=== PATIENT | male | born 1985 | race Caucasian/White ===

== ENCOUNTER 2021-01-22 15:51 | Emergency (ER) | payer SELFPAY ==
[~2021-01-22] VITALS: Ht 167.6 cm; Wt 86.4 kg
--- NOTE | 2021-01-22 15:58 | NUR ---
NO REPSONSE FROM PATIENT WHEN NAME CALLED
[2021-01-22 16:03] VITALS: BP 143/96
--- NOTE | 2021-01-22 16:19 | NUR ---
Pt to room from lobby at this time.
[2021-01-22] MEDS ORDERED: CYCLOBENZAPRINE 10 MG TABLET ONE (16:40)
[2021-01-22] MEDS ORDERED: ACETAMINOPHEN 500 MG TABLET ONE (16:40)
[2021-01-22] MEDS ORDERED: KETOROLAC 30 MG/1 ML ONE (16:41)
[2021-01-22] MEDS ORDERED: CYCLOBENZAPRINE 10 MG TABLET PO ONE (17:00)
[2021-01-22] MEDS ORDERED: KETOROLAC 30 MG/1 ML IM ONE (17:00)
[2021-01-22] MEDS ORDERED: ACETAMINOPHEN 500 MG TABLET PO ONE (17:00)
[2021-01-22 17:09] LABS: BASOPHILS % (AUTO) 1 % (0-1); EOSINOPHILS % (AUTO) 1 % (1-7); LYMPHOCYTES % (AUTO) 21 % (22-44); MEAN CORPUSCULAR HEMOGLOBIN 30.9 pg (27.5-34.5); MEAN CORPUSCULAR HGB CONC 35.6 g/dL (33.2-36.2); MEAN PLATELET VOLUME 5.7 fL (7.4-10.4); MONOCYTES % (AUTO) 5 % (2-9); NEUTROPHILS % (AUTO) 72 % (42-75); PLATELET COUNT 489 x10^3/uL (130-400); RED CELL DISTRIBUTION WIDTH 12.8 % (9.4-14.8)
[2021-01-22 17:17] LABS: ANION GAP 6 mmol/L (5-15); CHLORIDE 111 mmol/L (98-107); CREATININE 1.11 mg/dL (0.7-1.3)
[2021-01-22 18:49] LABS: MICROSCOPIC NOT IND
[2021-01-22 18:57] LABS: AMPHETAMINE SCREEN, URINE Negative (Negative); BARBITURATE SCREEN, URINE Negative (Negative); BENZODIAZEPINE SCREEN, URINE Negative (Negative); CANNABINOID SCREEN, URINE Negative (Negative); COCAINE SCREEN, URINE Negative (Negative); METHADONE SCREEN, URINE Negative (Negative); OPIATE SCREEN, URINE Negative (Negative)
--- NOTE | 2021-01-22 19:01 | NUR ---
REPORT TO CARMELO BARRAGAN.
== END 2021-01-22 19:10 | disposition home or self-care (01) ==
LOC: ED 19:04
DX: M54.42 Lumbago with sciatica, left side (principal); G89.4 Chronic pain syndrome; L98.499 Non-pressure chronic ulcer of skin of other sites with unspecified severity; Z88.0 Allergy status to penicillin
CPT/HCPCS: 36415; 80048; 80307; 81003; 85025; 96372; 99283; J1885